=== PATIENT | male | born 1975 | race Caucasian/White ===

== ENCOUNTER 2022-10-10 13:54 | Emergency (ER) | payer MEDICAID, SELFPAY ==
[2022-10-10 13:56] VITALS: BP 142/73; PULSE 99; RESP 14; TEMP 37.4; O2SAT 97; BMI 20.6
--- NOTE | 2022-10-10 14:18 | EDS_ITS ---
HPI History of Present Illness Chief Complaint: Complaint Informant: patient Narrative Narrative: Presenting to the ED for evaluation by private vehicle. At work he states he had blood in his urine and then developed pain across his upper abdomen. Denies nausea or vomiting. He reports normal bowel movements daily without blood. He drinks alcohol daily 2-4 drinks and had pancreatitis years ago. No history of kidney stones. Denies back pain. Denies fevers. Denies dysuria. Denies any abdominal surgeries in the past. He denies allergies. Denies being on any daily medications. He does have tobacco history. PFSH PFSH Home Medications omeprazole 40 mg capsule,delayed release 40 mg PO DAILY #30 caps 10/10/22 [Rx Last Taken Unknown] Allergy/AdvReac Type Severity Reaction Status Date / Time No Known Allergies Allergy Verified 10/10/22 13:56 Social History Smoking Status: Current every day smoker tobacco type: cigarettes ROS ROS ED Constitutional Constitutional ED: Denies chills, fever(s) or sweats Eyes Eyes: Denies change in vision ENT ENT ED: Denies dysphagia or sore throat Cardiovascular Cardiovascular: Denies chest pain, leg edema, palpitations or racing heartbeat Respiratory/Chest Respiratory/Chest: Denies cough, dyspnea or dyspnea on exertion Gastrointestinal Gastrointestinal: Reports abdominal pain; Denies diarrhea, nausea or vomiting Genitourinary Genitourinary ED: Reports hematuria; Denies dysuria or urinary frequency Musculoskeletal Musculoskeletal: Denies back pain, extremity pain or neck pain Integumentary Denies rash or wounds Neurologic Neurologic: Denies headache(s), paresthesias or weakness EXAM Physical Exam Const Vital Signs: 10/10/22 13:56 Temperature 99.3 F H Temperature Source Temporal Pulse Rate 99 Respiratory Rate 14 Blood Pressure 142/73 H Blood Pressure Mean 96 Pulse Ox 97 Oxygen Delivery Method Room Air Positive well nourished and well developed General Appearance ED: well developed and NAD HEENT Reports dry mucous membranes HEENT Narrative: Mild dry mucosal membranes normocephalic and atraumatic Mouth ED: Yes dry mucous membranes Mouth: dry mucous membranes Eyes PERRL, EOMs intact bilaterally and conjunctivae normal General Eye ED: Yes normal appearance of both eyes Neck no lymphadenopathy and supple General: Negative for tenderness Chest Wall Chest: Negative for tenderness Resp normal respiratory effort and normal air movement Effort and Inspection: symmetric chest movement; Negative for respiratory distress Cardio regular rate, regular rhythm and no murmurs Peripheral Pulses: pulses 2+ throughout GI normal to inspection, nondistended, normoactive bowel sounds GI Narrative: Mild epigastric tenderness. Negative Restrepo's McBurney's tenderness. Palpation: Negative for guarding or rebound tenderness present Back/Spine no CVA tenderness and no thoracic nor lumbar tenderness Extremity normal to inspection General Extremety ED: Negative for edema or tenderness General Extremity: Negative for edema Neuro oriented x3 and no sensory deficits noted Sensorium / Orientation: awake and alert Skin no rashes or lesions noted and no wounds MDM MDM MDM Narrative Medical decision making narrative: Patient epigastric abdominal pain reported hematuria. No back pain. IV established history of morphine Zofran. History of pancreatitis. Labs obtained normal lipase normal liver enzymes white count of 8.7. Creatinine 0.81. CT abdomen pelvis obtained for further evaluation. 1610: Symptoms improved soft abdomen. Urine was on the table noted yellow to clear urine there is no gross bleeding. This is sent to the lab and pending results. CT scan is pending results at this time. 1640: CT scan notes scar in the right lower lobe. No acute abdominal findings. Urine notes occult blood however no gross bleeding. Given follow-up with GI and urology as an outpatient. He is started on a PPI. He will watch monitor for rectal bleeding. Decrease decrease alcohol use. All questions were answered. Lab Data Attestation: I reviewed the patient's lab results. Labs: Laboratory Results - last 24 hr 10/10/22 10/10/22 10/10/22 14:49 14:49 16:09 WBC 8.7 RBC 4.76 Hgb 15.2 Hct 45.6 MCV 95.8 H MCH 31.9 MCHC 33.3 RDW Std Deviation 47.8 H RDW Coeff of Thiago 13.4 Plt Count 211 MPV 11.2 Immature Gran % (Auto) 0.300 Neut % (Auto) 61.9 Lymph % (Auto) 26.8 Mason % (Auto) 8.3 Eos % (Auto) 1.4 Baso % (Auto) 1.3 H Absolute Neuts (auto) 5.4 Absolute Lymphs (auto) 2.32 Nucleated RBC % 0 Sodium 142 Potassium 4.5 Chloride 107 Carbon Dioxide 31.0 Anion Gap 4 L BUN 12 Creatinine 0.81 Estim Creat Clear Calc 105.09 Est GFR (MDRD) Af Amer 132 Est GFR (MDRD) Non-Af 109 BUN/Creatinine Ratio 14.9 Glucose 95 Calcium 9.4 Total Bilirubin 0.40 Direct Bilirubin 0.15 AST 23 ALT 24 Alkaline Phosphatase 94 Total Protein 7.7 Albumin 4.1 Globulin 3.6 Lipase 119 Urine Color Straw Urine Clarity Clear Urine pH 7.0 Ur Specific [place] 1.005 Urine Protein Negative Urine Glucose (UA) Normal Urine Ketones Negative Urine Occult Blood 150 H Urine Nitrite Negative Urine Bilirubin Negative Urine Urobilinogen Normal Ur Leukocyte Esterase Negative Urine RBC 0-5 SEEN Urine WBC 0 SEEN Ur Squamous Epith Cells 0 SEEN Urine Bacteria 0 SEEN Urine Mucus 0 SEEN Radiography Diagnostic Testing: Clinical Impression(s) from Imaging Studies Abdomen/Pelvis CT 10/10/22 15:23 IMPRESSION: Right lower lobe nodules, likely fibrotic. Fleischner Society Guidelines (MacMahon, et al. Radiology 2017; 284(1):228-43) suggest that no further follow-up is necessary for patients with low or high risk of malignancy. Electronically Signed: Linda Wilson MD at 16:21 EST , Discharge Plan Triage Chief Complaint: Complaint ED Provider: Rick Herrera Dx/Rx/DC Orders Clinical Impression: Gastritis, Hematuria, Alcohol dependence, Epigastric abdominal pain Instructions: Alcoholism: Getting Help, ED Gastritis (Adult), ED Hematuria Prescriptions: New omeprazole 40 mg capsule,delayed release(DR/EC) 40 mg PO DAILY Qty: 30 0RF Primary Care Provider: Care Physician,No Primary Referrals: José Cook MD [Med Staff - Active Staff] - 1-2 Weeks Antonio Banuelos DO [Med Staff - Active Staff] - 1-2 Weeks Care Physician,No Primary [Primary Care Provider] - Activity Restrictions/Additional Instructions: Labs are stable no pancreatitis. CT scan notes scarring of the right lower lung no acute findings of the abdomen. Your urine does note blood however no infection. Try to decrease alcohol use, take medication as prescribed monitor for bloody stools. Follow-up with GI. Follow-up with urology for blood in your urine. Disposition Disposition: Home, Self Care
[2022-10-10] MEDS: 0.9% Normal Saline 1,000 ML 1000 ML IV (14:57)
[2022-10-10] MEDS: Ondansetron 4 MG/2 ML Vial IV (14:57)
[2022-10-10] MEDS: Morphine 4 MG/ML Syringe IV (14:57)
[2022-10-10 15:10] LABS: Absolute Lymphocyte Count 2.32 X10^3/uL (0.83-4.51); Absolute Neutrophil Count 5.4 X10^3/uL (2.0-7.7); Basophil# 0.11 X10^3/uL; Basophil% 1.3 % (0-1); Eosinophil# 0.12 X10^3/uL; Eosinophils% 1.4 % (0-5); Hematocrit 45.6 % (40-54); Hemoglobin 15.2 g/dL (13.0-16.5); Lymphocyte # 2.32 X10^3/ul (0.83-4.51); Lymphocyte % 26.8 % (19-41); Mean Corp Hgb Conc 33.3 g/dL (32-36); Mean Corpuscular Hgb 31.9 pg (27.0-32.0); Mean Corpuscular Volume 95.8 fL (80-94); Mean Platelet Vol. 11.2 fl (6.2-12.0); Monocyte# 0.72 X10^3/uL; Monocyte% 8.3 % (0-10); NRBC Flagged by Analyzer 0 % (0-5); Neutrophil # 5.37 X10^3/uL (2.7-7.7); Neutrophil % 61.9 % (47-70); Platelet Count 211 K/mm3 (150-450); RBC Distribution Width CV 13.4 % (11.6-14.6); RBC Distribution Width SD 47.8 fl (35.1-43.9); Red Blood Count 4.76 M/mm3 (4.6-6.2); White Blood Count 8.7 K/mm3 (4.4-11.0)
[2022-10-10 15:22] LABS: AST(SGOT) 23 U/L (15-37); Alanine Aminotransfer ALT/SGPT 24 U/L (16-61); Albumin, Serum 4.1 g/dL (3.2-5.0); Alkaline Phosphatase 94 U/L (45-117); Anion Gap 4 (5-15); BUN 12 mg/dL (7-18); BUN/Creat Ratio 14.9 RATIO (10-20); Bilirubin, Direct 0.15 mg/dL (0.00-0.30); Calcium,Total 9.4 mg/dL (8.5-10.1); Chloride 107 mmol/L (98-107); Creatinine, Serum 0.81 mg/dL (0.70-1.30); EST Glomerular Filtration Rate 109 mL/min (>60); Est Glom Filt Rate - Afr Amer 132 mL/min (>60); Estimated Creatinine Clearance 105.09 ml/min; Globulin 3.6 g/dL (2.2-4.2); Glucose 95 mg/dL (74-106); Lipase 119 U/L (73-393); Potassium 4.5 mmol/L (3.5-5.1); Protein, Total 7.7 g/dL (6.4-8.2); Sodium Level 142 mmol/L (136-145)
--- NOTE | 2022-10-10 15:23 | CT_ITS ---
EXAM: CT ABDOMEN AND PELVIS WITH INTRAVENOUS CONTRAST CLINICAL INDICATION: abd pain -- hx pancreatitis TECHNIQUE: Helically acquired images were obtained of the abdomen and pelvis with intravenous contrast. This CT exam was performed using one or more of the following dose reduction techniques: automated exposure control, adjustment of the mA and/or kV according to patient size, and/or use of iterative reconstruction technique. This report was created using [employer] report generation technology. CONTRAST: IV 100mL [id number] COMPARISON: None. FINDINGS: LOWER THORAX: Several nodules in the right lower lobe with mild associated scarring, likely fibrotic, measuring up to 4 mm. No cardiomegaly. No significant pericardial effusion. ABDOMEN: LIVER: Unremarkable. Homogeneous. No focal mass. GALLBLADDER AND BILE DUCTS: Unremarkable. No calcified gallstones. No gallbladder distention or wall edema. No intra- or extrahepatic biliary ductal dilation. PANCREAS: Unremarkable. No focal cystic or solid mass. SPLEEN: Unremarkable. Normal size without focal cystic or solid mass. ADRENALS: Unremarkable. No nodules. KIDNEYS AND URETERS: Unremarkable. Normal renal size and position. No hydronephrosis. STOMACH AND BOWEL: Unremarkable. No stomach or bowel distention. No focal inflammatory change. PELVIS: APPENDIX: Normal visualized appendix. BLADDER: Unremarkable. REPRODUCTIVE: Unremarkable as visualized. No mass. ABDOMEN and PELVIS: INTRAPERITONEAL SPACE: Unremarkable. No ascites or other fluid collection. No free air. BONES/JOINTS: Unremarkable. No suspicious lytic or blastic abnormality. SOFT TISSUES: Unremarkable. No discrete abdominal or pelvic wall hernia. VASCULATURE: Unremarkable. Abdominal aorta is normal in caliber. LYMPH NODES: Unremarkable. No enlarged lymph nodes. CT/Abdomen/Pelvis W IV Cont ONLY IMPRESSION: Right lower lobe nodules, likely fibrotic. Fleischner Society Guidelines (MacMahon, et al. Radiology 2017; 284(1):228-43) suggest that no further follow-up is necessary for patients with low or high risk of malignancy. Electronically Signed: Linda Wilson MD at 16:21 EST Reading Location ID and State: [id number] / Tel , Service support ,
[2022-10-10 15:54] VITALS: RESP 16
[2022-10-10 16:20] LABS: Bacteria 0 SEEN /hpf (None Seen); Mucous, Urine 0 SEEN /hpf (<or=2+); Squamous Epithelial Cells - UA 0 SEEN /hpf (0-5); White Blood Cells 0 SEEN /hpf (0-5)
[2022-10-10 16:31] LABS: Color, Urine Straw (Yellow); Glucose, Dipstick Normal (Normal); Ketone-Dipstick Negative (Negative); Leukocyte Esterase-Dipstick Negative /ul (Negative); Nitrite-Dipstick Negative (Negative); Occult Blood-Urine 150 /ul (Negative); Protein-Dipstick Negative (Negative); Specific Gravity, Urine 1.005 (1.002-1.030); Urine Bilirubin Dipstick Negative (Negative); Urine Clarity Clear (Clear); Urine Urobilinogen Normal (Normal)
[2022-10-10 16:42] VITALS: RESP 18
[2022-10-10 16:50] LABS: Red Blood Cells-Urine 0-5 SEEN /hpf (0-5)
== END 2022-10-10 17:03 | disposition home or self-care (01) ==
PROVIDERS: Emergency Provider Emergency Medicine; Visit Provider Emergency Medicine
DX: K29.70 Gastritis, unspecified, without bleeding (principal); F10.20 Alcohol dependence, uncomplicated; R31.0 Gross hematuria; F17.210 Nicotine dependence, cigarettes, uncomplicated; R10.13 Epigastric pain
CPT/HCPCS: 74177; 80048; 80076; 81001; 83690; 85025; 96361; 96374; 96375; 99284; J7030; Q9967; A4216; J2405